=== PATIENT | male | born 1960 | race Caucasian/White ===

== ENCOUNTER → 2024-06-22 | Outpatient (CLI) | payer BC, SELFPAY ==
[2024-06-22 17:55] LABS: Basophils % (Auto) 1 % (0-2.5); Eosinophils # (Auto) 0.2 Thou/mm3 (0.0-0.5); Eosinophils % (Auto) 3 % (0-10); Hematocrit 42.3 % (41.0-53.0); Hemoglobin 14.1 g/dL (13.5-16.0); Immature Granulocytes % (Auto) 0 % (0-0); Immature Granulocytes Auto 0.02 Thou/mm3 (0.00-0.00); Lymphocytes % (Auto) 29 % (10-50); Mean Corpuscular HGB Conc 33.3 g/dl (31.0-37.0); Mean Corpuscular Hemoglobin 31.5 pg (25.0-35.0); Mean Corpuscular Volume 95 fL (80-100); Monocytes # (Auto) 0.4 Thou/mm3 (0.0-0.8); Monocytes % (Auto) 6 % (0-12); Neutrophils # (Auto) 4.4 Thou/mm3 (1.8-7.7); Neutrophils % (Auto) 62 % (37-80); Nucleated Red Blood Cell % 0 /100 WBC (0); Platelet Count 192 Thou/mm3 (140-440); Red Blood Count 4.47 Miln/mm3 (4.50-5.90); White Blood Count 7.1 Thou/mm3 (3.8-10.6)
[2024-06-22 17:57] LABS: Prothrombin Time 11.1 Seconds (9.0-12.2)
== END ==
PROVIDERS: PCP Internal Medicine; Referring Provider Nurse Practitioner Adult Health; Visit Provider Nurse Practitioner Adult Health
DX: C80.1 Malignant (primary) neoplasm, unspecified (principal)
CPT/HCPCS: 36415; 85025; 85610

== ENCOUNTER → 2024-09-16 | Outpatient (CLI) | payer BC, SELFPAY ==
[2024-09-16 12:50] LABS: Basophils % (Auto) 0 % (0-2.5); Eosinophils % (Auto) 1 % (0-10); Hematocrit 41.9 % (41.0-53.0); Hemoglobin 14.1 g/dL (13.5-16.0); Immature Granulocytes % (Auto) 0 % (0-0); Immature Granulocytes Auto 0.01 Thou/mm3 (0.00-0.00); Lymphocytes # (Auto) 1.6 Thou/mm3 (1.0-4.8); Lymphocytes % (Auto) 27 % (10-50); Mean Corpuscular HGB Conc 33.7 g/dl (31.0-37.0); Mean Corpuscular Hemoglobin 31.5 pg (25.0-35.0); Mean Corpuscular Volume 94 fL (80-100); Monocytes # (Auto) 0.4 Thou/mm3 (0.0-0.8); Monocytes % (Auto) 7 % (0-12); Neutrophils # (Auto) 3.8 Thou/mm3 (1.8-7.7); Neutrophils % (Auto) 65 % (37-80); Nucleated Red Blood Cell % 0 /100 WBC (0); Platelet Count 188 Thou/mm3 (140-440); RDW Standard Deviation 45.1 fL (35.1-43.9); Red Blood Count 4.47 Miln/mm3 (4.50-5.90); White Blood Count 5.9 Thou/mm3 (3.8-10.6)
[2024-09-16 13:07] LABS: Alanine Aminotransferase 17 U/L (10-49); Albumin, Serum 4.2 gm/dL (3.4-4.8); Alkaline Phosphatase 71 U/L (46-116); Anion Gap 6 (7-16); Aspartate Amino Transferase 18 U/L (0-34); BUN/Creatinine Ratio 14 Ratio (12-20); Bilirubin,Total 0.8 mg/dL (0.3-1.2); Blood Urea Nitrogen 13 mg/dL (9-23); Calcium 9.2 mg/dL (8.3-10.6); Calcium (Corrected) 9.2 mg/dL (8.5-10.1); Carbon Dioxide 30.8 mMol/L (20.0-31.0); Chloride 105 mMol/L (98-107); Creatinine (Component) 0.9 mg/dL (0.6-1.3); Globulin 2.1 gm/dL (2.3-3.5); Glucose 91 mg/dL (74-106); Osmolality,Calculated 283 (275-295); Potassium 4.4 mMol/L (3.4-5.1); Sodium 142 mMol/L (136-145); Total Protein 6.3 gm/dL (5.7-8.2); eGFR > 60 See Note
== END | disposition home or self-care (01) ==
LOC: SCTO 11:20
PROVIDERS: PCP Internal Medicine; Referring Provider Radiology Therapeutic Radiology; Visit Provider Radiology Therapeutic Radiology
DX: C49.10 Malignant neoplasm of connective and soft tissue of unspecified upper limb, including shoulder (principal)
CPT/HCPCS: 36415; 80053; 85025

== ENCOUNTER 2024-09-30 14:33 | Outpatient (RCR) | payer BC, SELFPAY ==
--- NOTE | 2024-09-30 15:46 | CTCFLWUP_ITS ---
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 G2 T2 stage IIIa Postop XRT 6000 cGy completed 12/15/2021. Has had seromas from the left humerus drained regularly. No sign of recurrence on CT of the chest or MRI of the left humerus most recently performed 09/15/2024. There was minimal interval decrease in the size of cystic mass mid humerus left upper extremity along the anterior margin of the brachialis and biceps brachii. There was no interval growth of tumor however in chest or left upper extremity.. As I see patient today, there is no sign of tumor regrowth but the fluid collection in the arm is visible with minimal tenderness. Patient states that they may be some plastic surgery and intervention in the near future regarding the chronic seroma reaccumulation. I have scheduled him for follow-up in 4 months likely after the surgical procedure. Up-to-date recommendations for intermediate to high-grade tumors is twice a year to year 5 then yearly thereafter. Electronically signed by: Darrius cMpherson M.D. 09/30/2024 3:44 PM
== END 2024-10-08 23:59 | disposition home or self-care (01) ==
LOC: SCTC 14:33
PROVIDERS: PCP Internal Medicine; Referring Provider Internal Medicine; Visit Provider Radiology Therapeutic Radiology
DX: Z08 Encounter for follow-up examination after completed treatment for malignant neoplasm (principal); Z85.831 Personal history of malignant neoplasm of soft tissue; Z92.3 Personal history of irradiation
CPT/HCPCS: 99213; G0463

== ENCOUNTER → 2024-11-26 | Outpatient (CLI) | payer BC, SELFPAY ==
[2024-11-26 08:41] LABS: Basophils % (Auto) 1 % (0-2.5); Eosinophils # (Auto) 0.1 Thou/mm3 (0.0-0.5); Eosinophils % (Auto) 2 % (0-10); Hematocrit 43.3 % (41.0-53.0); Hemoglobin 14.7 g/dL (13.5-16.0); Immature Granulocytes % (Auto) 0 % (0-0); Immature Granulocytes Auto 0.01 Thou/mm3 (0.00-0.00); Lymphocytes # (Auto) 1.3 Thou/mm3 (1.0-4.8); Lymphocytes % (Auto) 29 % (10-50); Mean Corpuscular HGB Conc 33.9 g/dl (31.0-37.0); Mean Corpuscular Hemoglobin 32.2 pg (25.0-35.0); Mean Corpuscular Volume 95 fL (80-100); Monocytes # (Auto) 0.3 Thou/mm3 (0.0-0.8); Monocytes % (Auto) 8 % (0-12); Neutrophils # (Auto) 2.6 Thou/mm3 (1.8-7.7); Neutrophils % (Auto) 60 % (37-80); Nucleated Red Blood Cell % 0 /100 WBC (0); Platelet Count 173 Thou/mm3 (140-440); RDW Standard Deviation 46.6 fL (35.1-43.9); Red Blood Count 4.56 Miln/mm3 (4.50-5.90); White Blood Count 4.3 Thou/mm3 (3.8-10.6)
[2024-11-26 08:45] LABS: Glucose Estimated Average 111 mg/dL (80-131); Hemoglobin A1C 5.5 % Hgb (4.8-6.0)
[2024-11-26 08:52] LABS: Ferritin 179 ng/mL (10.5-307.3); Iron 92 mcg/dL (65-175); Total Iron Binding Capacity 301 mcg/dL (250-425)
[2024-11-26 08:53] LABS: Folate 20.69 ng/mL (>5.38); Parathyroid Hormone Intact 68.4 pg/ml (18.5-88.0); Vitamin B12 503 pg/mL (211-911)
[2024-11-26 09:04] LABS: Alanine Aminotransferase 12 U/L (10-49); Albumin, Serum 4.2 gm/dL (3.4-4.8); Albumin/Globulin Ratio 1.9 (1.2-2.2); Alkaline Phosphatase 68 U/L (46-116); Anion Gap 5 (7-16); Aspartate Amino Transferase 18 U/L (0-34); BUN/Creatinine Ratio 18 Ratio (12-20); Blood Urea Nitrogen 16 mg/dL (9-23); Calcium 9.2 mg/dL (8.3-10.6); Calcium (Corrected) 9.2 mg/dL (8.5-10.1); Carbon Dioxide 27.9 mMol/L (20.0-31.0); Cardiac Risk Estimate 3.8 RATIO (4.0-6.7); Chloride 109 mMol/L (98-107); Cholesterol 200 mg/dL (132-200); Creatinine (Component) 0.9 mg/dL (0.6-1.3); Globulin 2.2 gm/dL (2.3-3.5); Glucose 121 mg/dL (74-106); HDL Cholesterol 52 mg/dL (40-60); LDL Cholesterol,Calculated 128 mg/dL (0-130); Osmolality,Calculated 285 (275-295); Potassium 4.1 mMol/L (3.4-5.1); Sodium 142 mMol/L (136-145); Total Protein 6.4 gm/dL (5.7-8.2); Triglycerides 100 mg/dL (30-150); eGFR > 60 See Note
[2024-12-03 06:58] LABS: Vitamin B1 (Thiamine)* 15 nmol/L (8-30); Vitamin B6, Plasma* 28.1 ng/mL (2.1-21.7)
[2024-12-06 07:01] LABS: Vitamin D,1,25 (OH)2,Total 62 pg/mL (18-72); Vitamin D2, 1,25 (OH)2 <8 pg/mL; Vitamin D3, 1,25 (OH)2 62 pg/mL
== END | disposition home or self-care (01) ==
LOC: COPL 06:41
PROVIDERS: PCP Internal Medicine; Referring Provider Nurse Practitioner Primary Care; Visit Provider Nurse Practitioner Primary Care
DX: K91.2 Postsurgical malabsorption, not elsewhere classified (principal); E66.01 Morbid (severe) obesity due to excess calories; Z98.84 Bariatric surgery status; Z90.3 Acquired absence of stomach [part of]; E88.810 Metabolic syndrome; K76.0 Fatty (change of) liver, not elsewhere classified; E11.9 Type 2 diabetes mellitus without complications; E78.00 Pure hypercholesterolemia, unspecified; E55.9 Vitamin D deficiency, unspecified
CPT/HCPCS: 36415; 80053; 80061; 82607; 82652; 82728; 82746; 83036; 83540; 83550; 83970; 84207; 84425; 85025

== ENCOUNTER 2025-01-25 13:13 | Outpatient (RCR) | payer BC, SELFPAY ==
--- NOTE | 2025-01-25 14:01 | CTCFLWUP_ITS ---
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 Has a problem with seroma from left humerus drained regularly. Most recent MRI 09/15/2024 minimal interval decrease size of cystic mass mid humerus left upper extremity along with the anterior margin of the brachialis and biceps brachii. No evidence of interval growth. Chest CT 09/15/2024 no suspicious pulmonary nodules or any significant interval change. Patient underwent a surgical procedure [facility] in December removing the seroma and getting a graft from wrist and lower extremity. Both the primary site left arm and the graft donor site appears to be clean and infection free. No sign of recurrence. Lungs sound clear. I will see him back in 6 months for another check, likely MRI chest CT by next September. Electronically signed by: Darrius Mcpherson M.D. 01/25/2025 1:59 PM
== END 2025-02-07 23:59 | disposition home or self-care (01) ==
LOC: SCTC 13:13
PROVIDERS: PCP Internal Medicine; Referring Provider Internal Medicine; Visit Provider Radiology Therapeutic Radiology
DX: Z08 Encounter for follow-up examination after completed treatment for malignant neoplasm (principal); Z85.831 Personal history of malignant neoplasm of soft tissue; Z92.3 Personal history of irradiation
CPT/HCPCS: 99213; G0463

== ENCOUNTER → 2025-02-22 | Outpatient (CLI) | payer BC, SELFPAY ==
[2025-02-22 10:09] LABS: Basophils # (Auto) 0.0 Thou/mm3 (0.0-0.2); Basophils % (Auto) 1 % (0-2.5); Eosinophils # (Auto) 0.1 Thou/mm3 (0.0-0.5); Eosinophils % (Auto) 2 % (0-10); Hematocrit 42.7 % (41.0-53.0); Hemoglobin 14.4 g/dL (13.5-16.0); Immature Granulocytes Auto 0.02 Thou/mm3 (0.00-0.00); Lymphocytes # (Auto) 1.5 Thou/mm3 (1.0-4.8); Lymphocytes % (Auto) 25 % (10-50); Mean Corpuscular HGB Conc 33.7 g/dl (31.0-37.0); Mean Corpuscular Hemoglobin 31.7 pg (25.0-35.0); Mean Corpuscular Volume 94 fL (80-100); Monocytes # (Auto) 0.5 Thou/mm3 (0.0-0.8); Monocytes % (Auto) 9 % (0-12); Neutrophils # (Auto) 3.7 Thou/mm3 (1.8-7.7); Neutrophils % (Auto) 64 % (37-80); Nucleated Red Blood Cell # 0.00 Thou/mm3 (0.00-0.00); Nucleated Red Blood Cell % 0 /100 WBC (0); Platelet Count 203 Thou/mm3 (140-440); RDW Standard Deviation 46.6 fL (35.1-43.9); Red Blood Count 4.54 Miln/mm3 (4.50-5.90); White Blood Count 5.8 Thou/mm3 (3.8-10.6)
[2025-02-22 10:18] LABS: Glucose Estimated Average 108 mg/dL (80-131); Hemoglobin A1C 5.4 % Hgb (4.8-6.0)
[2025-02-22 10:24] LABS: Prostate Specific Antigen 2.24 ng/mL (0-4.00)
[2025-02-22 10:28] LABS: Collection Type, Urine Clean Catch; Squamous Epithelial Cell,Urine 0 /hpf (0-5)
[2025-02-22 10:29] LABS: Vitamin B12 550 pg/mL (211-911); Vitamin D 25 Hydroxy Total 40.8 ng/mL (7.3-40.2)
[2025-02-22 10:35] LABS: Alanine Aminotransferase 12 U/L (10-49); Albumin, Serum 4.3 gm/dL (3.4-4.8); Albumin/Globulin Ratio 1.9 (1.2-2.2); Alkaline Phosphatase 77 U/L (46-116); Anion Gap 7 (7-16); Aspartate Amino Transferase 18 U/L (0-34); BUN/Creatinine Ratio 14 Ratio (12-20); Bilirubin,Total 1.5 mg/dL (0.3-1.2); Blood Urea Nitrogen 14 mg/dL (9-23); Calcium 9.2 mg/dL (8.3-10.6); Calcium (Corrected) 9.2 mg/dL (8.5-10.1); Carbon Dioxide 29.3 mMol/L (20.0-31.0); Cardiac Risk Estimate 4.7 RATIO (4.0-6.7); Chloride 105 mMol/L (98-107); Cholesterol 252 mg/dL (132-200); Creatinine (Component) 1.0 mg/dL (0.6-1.3); Globulin 2.3 gm/dL (2.3-3.5); Glucose 114 mg/dL (74-106); HDL Cholesterol 54 mg/dL (40-60); LDL Cholesterol,Calculated 167 mg/dL (0-130); Osmolality,Calculated 282 (275-295); Potassium 4.5 mMol/L (3.4-5.1); Sodium 141 mMol/L (136-145); Thyroid Stimulating Hormone 2.15 uIU/mL (0.55-4.78); Total Protein 6.6 gm/dL (5.7-8.2); Triglycerides 156 mg/dL (30-150); Uric Acid 6.3 mg/dL (3.7-9.2); eGFR > 60 See Note
[2025-02-22 11:17] LABS: Bilirubin,Urine Negative (Negative); Blood,Urine Negative (Negative); Clarity,Urine Clear (Clear/Hazy); Color,Urine Lt-Yellow (Lt Yel-Yel); Glucose, Urine Negative (Negative); Ketones,Urine Negative (Negative); Leukocyte Esterase,Urine Negative (Negative); Nitrite,Urine Negative (Negative); PH,Urine 6.5 (5.0-7.0); Protein,Urine Negative (Neg - Trace); RBC,Urine 1 /hpf (0-3); Specific Gravity,Urine 1.022 (1.001-1.035); Urobilinogen,Urine Negative mg/dL (0.0-1.0); WBC,Urine < 1 /hpf (0-5)
== END | disposition home or self-care (01) ==
LOC: COPL 09:40
PROVIDERS: PCP Internal Medicine; Referring Provider Internal Medicine; Visit Provider Internal Medicine
DX: Z00.00 Encounter for general adult medical examination without abnormal findings (principal)
CPT/HCPCS: 36415; 80053; 80061; 81001; 82306; 82607; 83036; 84153; 84443; 84550; 85025

== ENCOUNTER → 2025-07-12 | Outpatient (CLI) | payer BC, SELFPAY ==
[2025-07-12 10:27] LABS: Alanine Aminotransferase 14 U/L (10-49); Albumin, Serum 4.6 gm/dL (3.4-4.8); Alkaline Phosphatase 67 U/L (46-116); Anion Gap 9 (7-16); Aspartate Amino Transferase 21 U/L (0-34); BUN/Creatinine Ratio 10 Ratio (12-20); Bilirubin,Total 1.8 mg/dL (0.3-1.2); Blood Urea Nitrogen 10 mg/dL (9-23); Calcium 9.7 mg/dL (8.3-10.6); Calcium (Corrected) 9.7 mg/dL (8.5-10.1); Carbon Dioxide 29.0 mMol/L (20.0-31.0); Chloride 105 mMol/L (98-107); Creatinine (Component) 1.0 mg/dL (0.6-1.3); Glucose 99 mg/dL (74-106); Osmolality,Calculated 283 (275-295); Potassium 4.4 mMol/L (3.4-5.1); Sodium 143 mMol/L (136-145); eGFR > 60 See Note
[2025-07-12 15:02] LABS: Albumin/Globulin Ratio 1.8 (1.2-2.2); Cholesterol 266 mg/dL (132-200); Globulin 2.5 gm/dL (2.3-3.5); Total Protein 7.1 gm/dL (5.7-8.2); Triglycerides 175 mg/dL (30-150)
[2025-07-12 15:15] LABS: Cardiac Risk Estimate 5.1 RATIO (4.0-6.7); HDL Cholesterol 52 mg/dL (40-60); LDL Cholesterol,Calculated 179 mg/dL (0-130)
[2025-07-18 06:39] LABS: Testosterone, Free,Dialysis 52.4 pg/mL (35.0-155.0); Testosterone, Total, Dialysis 418 ng/dL (250-1100)
== END | disposition home or self-care (01) ==
LOC: COPL 08:12
PROVIDERS: PCP Internal Medicine; Referring Provider Internal Medicine; Visit Provider Internal Medicine
DX: E29.1 Testicular hypofunction (principal)
CPT/HCPCS: 36415; 80053; 80061; 84402; 84403

== ENCOUNTER → 2025-07-18 | Outpatient (CLI) | payer BC, SELFPAY ==
[2025-07-18 18:23] LABS: Basophils # (Auto) 0.0 Thou/mm3 (0.0-0.2); Basophils % (Auto) 1 % (0-2.5); Eosinophils # (Auto) 0.1 Thou/mm3 (0.0-0.5); Eosinophils % (Auto) 1 % (0-10); Hematocrit 43.3 % (41.0-53.0); Hemoglobin 14.5 g/dL (13.5-16.0); Immature Granulocytes Auto 0.01 Thou/mm3 (0.00-0.00); Lymphocytes # (Auto) 1.7 Thou/mm3 (1.0-4.8); Lymphocytes % (Auto) 32 % (10-50); Mean Corpuscular HGB Conc 33.5 g/dl (31.0-37.0); Mean Corpuscular Hemoglobin 31.9 pg (25.0-35.0); Mean Corpuscular Volume 95 fL (80-100); Monocytes # (Auto) 0.4 Thou/mm3 (0.0-0.8); Monocytes % (Auto) 7 % (0-12); Neutrophils # (Auto) 3.1 Thou/mm3 (1.8-7.7); Neutrophils % (Auto) 59 % (37-80); Nucleated Red Blood Cell # 0.00 Thou/mm3 (0.00-0.00); Nucleated Red Blood Cell % 0 /100 WBC (0); Platelet Count 196 Thou/mm3 (140-440); RDW Standard Deviation 47.5 fL (35.1-43.9); Red Blood Count 4.54 Miln/mm3 (4.50-5.90); White Blood Count 5.3 Thou/mm3 (3.8-10.6)
[2025-07-18 18:39] LABS: Free T4 (Free Thyroxine) 1.29 ng/dL (0.89-1.76); Thyroid Stimulating Hormone 1.28 uIU/mL (0.55-4.78)
[2025-07-18 20:11] LABS: Glucose Estimated Average 114 mg/dL (80-131); Hemoglobin A1C 5.6 % Hgb (4.8-6.0)
== END | disposition home or self-care (01) ==
LOC: COPL 16:36
PROVIDERS: PCP Internal Medicine; Referring Provider Internal Medicine Cardiovascular Disease; Visit Provider Internal Medicine Cardiovascular Disease
DX: I10 Essential (primary) hypertension (principal); E78.5 Hyperlipidemia, unspecified; E13.9 Other specified diabetes mellitus without complications; E07.9 Disorder of thyroid, unspecified
CPT/HCPCS: 36415; 83036; 84439; 84443; 85025

== ENCOUNTER 2025-07-26 14:33 | Outpatient (RCR) | payer BC, SELFPAY ==
--- NOTE | 2025-07-26 15:28 | CTCFLWUP_ITS ---
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 Patient with leiomyosarcoma grade 2 left upper extremity status post wide excision [address] [facility] September 25, 2021 G2 T2 stage IIIa. Postop XRT 6000 cGy completed 12/15/2021. Problem with seroma from left humerus drained regularly, and about 4 months ago plastics surgeon did repair using skin from wrist and left lower extremity. Last MRI 09/15/2024 minimal interval decrease size of cystic mass mid humerus left upper extremity along with anterior margin of brachialis and biceps brachii. No evidence of interval growth. Chest CT 09/15/2024 no suspicious pulmonary nodules or any significant interval change. As I examine patient today there was no sign of recurrence in the left upper extremity axilla lungs were clear. Assessment. Stage IIIa left upper extremity leiomyosarcoma status post surgery postablative therapy completed 12/15/2021. Order CT scan of the chest and left upper EXTR MRI. If unremarkable see him back in 6 months. Electronically signed by: Darrius Mcpherson M.D. 07/26/2025 3:26 PM
== END 2025-08-10 23:59 | disposition home or self-care (01) ==
LOC: SCTC 14:33
PROVIDERS: PCP Internal Medicine; Referring Provider Internal Medicine; Visit Provider Radiology Therapeutic Radiology
DX: Z08 Encounter for follow-up examination after completed treatment for malignant neoplasm (principal); Z85.831 Personal history of malignant neoplasm of soft tissue; Z92.3 Personal history of irradiation
CPT/HCPCS: 99213; G0463